=== PATIENT | male | born 1945 | race Caucasian/White ===

== ENCOUNTER → 2016-12-24 | Outpatient (CLI) | payer OTHER ==
[~2016-12-24] MED LIST: ASPIR 8181 MG PO; CENTRUM SILVER1 EAC1 PO; CLARITIN 10MG T10 MG PO; FISH OIL500 MG PO; FLOMAX 0.4 MG0.4 MG PO; FLONASE 0.05% N16 GM; GLUCOTROL 10 MG10 MG PO; HYDRALAZINE HCL10 MG PO; ISOSORBIDE MONO60 MG PO; LIORESAL TAB 1010 MG PO; LIPITOR TAB 2020 MG PO; METOPROLOL SUC100 MG PO; NEURONTIN 300300 MG PO; NITROSTAT0.4 MG SL; PRILOSEC OTC20 MG PO; PROVENTIL HFA 61 INH INH; RANEXA500 MG PO; TRADJENTA5 MG PO; TRESIBA SQ; ULTRAM50 MG PO; VITAMIN C 500500 MG PO; [UNRECOGNIZED DRUG - OTHER] OU
== END ==
LOC: RAD 16:18
DX: J06.9 Acute upper respiratory infection, unspecified (principal)
CPT/HCPCS: 71020

== ENCOUNTER → 2017-03-14 | Outpatient (CLI) | payer OTHER | LOC: HEART 5 11:41 | DX: J45.991 Cough variant asthma (principal) | CPT/HCPCS: 94060 ==

== ENCOUNTER 2020-09-23 20:04 | Emergency (ER) | payer OTHER ==
[~2020-09-23 20:04] MED LIST changes: +AMIODARONE HCL200 MG PO; +ASPIR-LOW81 MG PO; +CINNAMON PO; +CINNAMON500 MG PO; +CORDARONE 200M200 MG PO; +CREAM TOP; +ELIQUIS 5 MG TAB5 MG PO; +FISH OIL 1,0001 EAC4 PO; -GLUCOTROL 10 MG10 MG PO; +GLUCOTROL XL 5 M5 MG PO; +GLUCOTROL5 MG PO; +LATANOPROST 0.7.5 ML EYEBOTH; +LIPITOR40 MG PO; +LOPRESSOR 25 MG25 MG PO; +NEURONTIN600 MG PO; +OCCUVITE LUTEIN PO; +OCUVITE WITH L1 EACH PO; +OMEPRAZOLE40 MG PO; +ONCE DAILY1 EACH PO; +PLETAL 100 MG100 MG PO; +TOPROL XL100 MG PO; +TRESIBA FL100 UNIT/1 INJ; +VICTOZA 1818 MG/3 ML INJ; +VICTOZA 1818 MG/3 ML SQ; +VITAMIN C1000 MG PO; +VITAMIN D3400 UNIT PO; -[UNRECOGNIZED DRUG - OTHER] OU
[2020-09-23 21:29] LABS: HEMOGLOBIN 12.6 gm/dl (14.0-17.5); RED BLOOD COUNT 3.79 M/UL (4.20-5.50); WHITE BLOOD COUNT 7.8 K/UL (4.5-11.0)
[2020-09-23 21:35] LABS: BUN/CREATININE RATIO 16 (0-10)
== END 2020-09-23 23:57 | disposition home or self-care (01) ==
LOC: ER1 20:04
PROVIDERS: Family Medicine
DX: D64.9 Anemia, unspecified (principal); E11.22 Type 2 diabetes mellitus with diabetic chronic kidney disease; I12.9 Hypertensive chronic kidney disease with stage 1 through stage 4 chronic kidney disease, or unspecified chronic kidney disease; N18.9 Chronic kidney disease, unspecified; I48.91 Unspecified atrial fibrillation; Z20.822 Contact with and (suspected) exposure to COVID-19
CPT/HCPCS: 71045; 80053; 81001; 82550; 82553; 83615; 83874; 84484; 85025; 85610; 86140; 93005; 99285; U0002

== ENCOUNTER → 2020-11-15 | Outpatient (CLI) | payer OTHER ==
[2020-11-15 13:32] LABS: HEMOGLOBIN 12.9 gm/dl (14.0-17.5); RED BLOOD COUNT 3.84 M/UL (4.20-5.50); WHITE BLOOD COUNT 9.4 K/UL (4.5-11.0)
== END ==
LOC: LAB 12:47
PROVIDERS: Emergency Medicine
DX: I12.9 Hypertensive chronic kidney disease with stage 1 through stage 4 chronic kidney disease, or unspecified chronic kidney disease (principal); E11.22 Type 2 diabetes mellitus with diabetic chronic kidney disease; N18.30 Chronic kidney disease, stage 3 unspecified; I73.89 Other specified peripheral vascular diseases; I95.2 Hypotension due to drugs; R53.83 Other fatigue; R06.02 Shortness of breath; E11.65 Type 2 diabetes mellitus with hyperglycemia; E78.2 Mixed hyperlipidemia; D64.89 Other specified anemias
CPT/HCPCS: 36415; 71046; 80053; 83880; 84443; 84484; 85025; 85379

== ENCOUNTER 2020-11-23 15:06 | Emergency (ER) | payer OTHER ==
[2020-11-23 17:47] LABS: HEMOGLOBIN 12.2 gm/dl (14.0-17.5); RED BLOOD COUNT 3.65 M/UL (4.20-5.50); WHITE BLOOD COUNT 9.3 K/UL (4.5-11.0)
== END 2020-11-23 19:11 | disposition home or self-care (01) ==
LOC: ER1 15:06
PROVIDERS: Emergency Medicine
DX: R53.1 Weakness (principal); M54.5 Low back pain; R53.83 Other fatigue; I10 Essential (primary) hypertension; E11.9 Type 2 diabetes mellitus without complications
CPT/HCPCS: 71045; 80053; 81001; 82550; 82553; 83735; 83874; 83880; 84100; 84439; 84443; 84484; 85025; 85610; 85730; 93005; 99285

== ENCOUNTER → 2020-11-29 | Outpatient (CLI) | payer OTHER | LOC: US 10:25 | DX: R53.83 Other fatigue (principal); I73.89 Other specified peripheral vascular diseases; R06.02 Shortness of breath; I95.2 Hypotension due to drugs | CPT/HCPCS: 93005; 93925 ==

== ENCOUNTER → 2020-12-14 | Outpatient (CLI) | payer OTHER | LOC: US 10:06 | DX: I65.23 Occlusion and stenosis of bilateral carotid arteries (principal) | CPT/HCPCS: 93880 ==

== ENCOUNTER → 2020-12-15 | Outpatient (CLI) | payer OTHER | LOC: KOH-I 12:51 | DX: G44.89 Other headache syndrome (principal); M51.36 Other intervertebral disc degeneration, lumbar region; M51.26 Other intervertebral disc displacement, lumbar region; G31.9 Degenerative disease of nervous system, unspecified | CPT/HCPCS: 70450; 72148 ==

== ENCOUNTER → 2021-07-05 | Outpatient (CLI) | payer OTHER | LOC: KOH-I 10:20 | DX: Z01.818 Encounter for other preprocedural examination (principal); M43.16 Spondylolisthesis, lumbar region; M48.061 Spinal stenosis, lumbar region without neurogenic claudication; M51.36 Other intervertebral disc degeneration, lumbar region | CPT/HCPCS: 72131 ==

== ENCOUNTER → 2021-08-29 | Outpatient (CLI) | payer OTHER ==
[~2021-08-29] MED LIST changes: +ALBUTEROL INH; +CYMBALTA 30 MG30 MG PO; +ELIQUIS5 MG PO; +GABAPENTIN600 MG PO; +GLIPIZIDE ER5 MG PO; +LEVOTHYROXINE50 MCG PO; +OMEGA 3 1,0001 EACH PO; +RYTHMOL SR 325325 MG PO; +TOPROL XL25 MG PO; +TRESIBA FL100 UNIT/1 SQ; +VICTOZA 3-0.6 MG/0.1 SQ
[2021-08-29 10:48] LABS: HEMOGLOBIN 12.2 gm/dl (14.0-17.5); RED BLOOD COUNT 3.7 M/UL (4.20-5.50); WHITE BLOOD COUNT 11.2 K/UL (4.5-11.0)
== END ==
LOC: EDSTATUS 10:00 → OPSV2 10:00
PROVIDERS: Orthopaedic Surgery
DX: Z01.818 Encounter for other preprocedural examination (principal); M47.26 Other spondylosis with radiculopathy, lumbar region; M48.061 Spinal stenosis, lumbar region without neurogenic claudication
CPT/HCPCS: 71046; 80053; 81001; 83036; 85027; 87081; 93005

== ENCOUNTER → 2021-09-10 | Outpatient (CLI) | payer OTHER ==
[~2021-09-10] MED LIST changes: -ALBUTEROL INH; +AMMONIUM LACTA140 GM TOP; -CREAM TOP; +NOVOLOG 10100 UNITS1 INJ; +PROAIR DIGIHAL90 MCG INH; +ROXICODONE5 MG PO; +RYTHMOL SR 225225 MG PO; -RYTHMOL SR 325325 MG PO
== END ==
LOC: LAB 09:04
PROVIDERS: Orthopaedic Surgery
DX: Z01.812 Encounter for preprocedural laboratory examination (principal); I25.10 Atherosclerotic heart disease of native coronary artery without angina pectoris; I48.91 Unspecified atrial fibrillation; E11.9 Type 2 diabetes mellitus without complications
CPT/HCPCS: 36415; 80048; 85610; 85730; 86850; 86900; 86901

== ENCOUNTER 2021-09-11 05:42 | Inpatient (IN) | payer OTHER ==
[~2021-09-11] VITALS: Ht 167.6 cm; Wt 108.0 kg
[~2021-09-11 05:42] MED LIST changes: -AMMONIUM LACTA140 GM TOP; -LEVOTHYROXINE50 MCG PO; -NOVOLOG 10100 UNITS1 INJ; -OMEGA 3 1,0001 EACH PO; -PROAIR DIGIHAL90 MCG INH; -ROXICODONE5 MG PO; -RYTHMOL SR 225225 MG PO; -TRESIBA FL100 UNIT/1 INJ
[2021-09-11] MEDS ORDERED: ELIQUIS 5 MG TAB5 MG PO (09:13)
[2021-09-11] MEDS ORDERED: AMMONIUM LACTA140 GM TOP (09:19)
[2021-09-11] MEDS ORDERED: TRESIBA FL100 UNIT/1 INJ (09:23)
[2021-09-11] MEDS ORDERED: RYTHMOL SR 225225 MG PO (12:09)
[2021-09-11] MEDS ORDERED: LIPITOR40 MG PO (12:11)
[2021-09-11] MEDS ORDERED: OMEPRAZOLE40 MG PO (12:13)
[2021-09-11] MEDS ORDERED: LEVOTHYROXINE50 MCG PO (12:14)
[2021-09-11] MEDS ORDERED: OMEGA 3 1,0001 EACH PO (12:15)
[2021-09-11] MEDS ORDERED: PROAIR DIGIHAL90 MCG INH (12:16)
[2021-09-11 15:20] LABS: HEMOGLOBIN 9.6 gm/dl (14.0-17.5); RED BLOOD COUNT 2.95 M/UL (4.20-5.50)
[2021-09-11] MEDS ORDERED: ROXICODONE5 MG PO (18:50)
[2021-09-11] MEDS ORDERED: NOVOLOG 10100 UNITS1 INJ (18:51)
[2021-09-12 05:35] LABS: HEMOGLOBIN 9.6 gm/dl (14.0-17.5); RED BLOOD COUNT 2.98 M/UL (4.20-5.50); WHITE BLOOD COUNT 11.9 K/UL (4.5-11.0)
[2021-09-12 05:47] LABS: BUN/CREATININE RATIO 15 (0-10)
[2021-09-13 04:52] LABS: HEMOGLOBIN 8.4 gm/dl (14.0-17.5); WHITE BLOOD COUNT 11.4 K/UL (4.5-11.0)
[2021-09-13 05:12] LABS: RED BLOOD COUNT 2.58 M/UL (4.20-5.50)
[2021-09-13 13:51] LABS: HEMOGLOBIN 9.1 gm/dl (14.0-17.5)
[2021-09-14 05:41] LABS: HEMOGLOBIN 8.4 gm/dl (14.0-17.5); RED BLOOD COUNT 2.53 M/UL (4.20-5.50)
[2021-09-14 05:42] LABS: WHITE BLOOD COUNT 14.4 K/UL (4.5-11.0)
--- NOTE | 2021-09-14 23:09 | NUR ---
PT GOT UP TO USE RESTROOM AND STATED THAT HIS "BANDAGE IS PEELING OFF SOME." PRIMARY RN CLARIFIED THAT DRESSING WAS STILL INTACT. PT STATED THAT HE WANTED TO "SLEEP ON IT TO HOLD IT IN PLACE" AND THAT HE WOULD ALLOW PRIMARY RN TO CHANGE OR RE-INFORCE DRESSING NEEDED WHEN HE GOT UP TO USE BATHROOM AGAIN. [facility]
[2021-09-15 02:58] LABS: HEMOGLOBIN 8.8 gm/dl (14.0-17.5); RED BLOOD COUNT 2.68 M/UL (4.20-5.50)
[2021-09-15] MEDS ORDERED: CYCLOBENZAPRINE10 MG PO (09:59)
[2021-09-15] MEDS ORDERED: POLYETHYLENE GL17 GM PO (09:59)
[2021-09-15] MEDS ORDERED: FLU VACCINE IM (10:33)
[2021-09-16 06:11] LABS: HEMOGLOBIN 8.3 gm/dl (14.0-17.5); RED BLOOD COUNT 2.5 M/UL (4.20-5.50); WHITE BLOOD COUNT 9.3 K/UL (4.5-11.0)
== END 2021-09-16 18:30 | disposition home or self-care (01) | DRG 460 ==
LOC: OR 05:42 → CCU 15:40 → M/S 09-14 10:27
PROVIDERS: Internal Medicine Infectious Disease; Internal Medicine Nephrology; ADMIT Orthopaedic Surgery
PROC: 0SB20ZZ Excision of Lumbar Vertebral Disc, Open Approach (ICD-10-PCS; 2021-09-11)
PROC: 01NB0ZZ Release Lumbar Nerve, Open Approach (ICD-10-PCS; 2021-09-11)
PROC: 4A11X4G Monitoring of Peripheral Nervous Electrical Activity, Intraoperative, External Approach (ICD-10-PCS; 2021-09-11)
PROC: 0SG1071 Fusion of 2 or more Lumbar Vertebral Joints with Autologous Tissue Substitute, Posterior Approach, Posterior Column, Open Approach (ICD-10-PCS; 2021-09-11 07:30)
PROC: 30233N1 Transfusion of Nonautologous Red Blood Cells into Peripheral Vein, Percutaneous Approach (ICD-10-PCS; principal; 2021-09-14)
DX: M48.061 Spinal stenosis, lumbar region without neurogenic claudication (principal); D62 Acute posthemorrhagic anemia; N17.9 Acute kidney failure, unspecified; M47.26 Other spondylosis with radiculopathy, lumbar region; I25.10 Atherosclerotic heart disease of native coronary artery without angina pectoris; Z20.822 Contact with and (suspected) exposure to COVID-19; I12.9 Hypertensive chronic kidney disease with stage 1 through stage 4 chronic kidney disease, or unspecified chronic kidney disease; N18.30 Chronic kidney disease, stage 3 unspecified; I48.0 Paroxysmal atrial fibrillation; H40.9 Unspecified glaucoma; E03.9 Hypothyroidism, unspecified; Z96.652 Presence of left artificial knee joint; E11.22 Type 2 diabetes mellitus with diabetic chronic kidney disease; K21.9 Gastro-esophageal reflux disease without esophagitis; G47.33 Obstructive sleep apnea (adult) (pediatric); E78.5 Hyperlipidemia, unspecified; N13.9 Obstructive and reflux uropathy, unspecified; R33.8 Other retention of urine; M51.36 Other intervertebral disc degeneration, lumbar region; Z79.01 Long term (current) use of anticoagulants; Z85.46 Personal history of malignant neoplasm of prostate; Z98.890 Other specified postprocedural states; Z90.89 Acquired absence of other organs; Z98.42 Cataract extraction status, left eye; Z98.41 Cataract extraction status, right eye; Z79.899 Other long term (current) drug therapy; Z79.52 Long term (current) use of systemic steroids; Z92.3 Personal history of irradiation; Z82.49 Family history of ischemic heart disease and other diseases of the circulatory system
CPT/HCPCS: 36415; 36430; 72100; 72110; 76000; 80048; 80053; 81001; 82962; 84133; 84300; 85014; 85018; 85025; 85027; 86850; 86900; 86901; 86920; 89050; 90686; 94760; 97116-GP-CQ; 97161; 97166; 97530; 97530-GP-CQ; 97535; C1713; C1762; G0008; J0690; J1100; J1200; J1940; J2370; J2704; J2710; J3010; J3370; J3475; J7030; J7040; J7120; P9016; P9047

== ENCOUNTER → 2021-09-20 | Outpatient (CLI) | payer OTHER ==
[~2021-09-20] MED LIST changes: +AMMONIUM LACTA140 GM TOP; +CYCLOBENZAPRINE10 MG PO; +FLU VACCINE IM; +LEVOTHYROXINE50 MCG PO; +NOVOLOG 10100 UNITS1 INJ; +OMEGA 3 1,0001 EACH PO; +POLYETHYLENE GL17 GM PO; +PROAIR DIGIHAL90 MCG INH; +ROXICODONE5 MG PO; +RYTHMOL SR 225225 MG PO; +TRESIBA FL100 UNIT/1 INJ
[2021-09-20 13:42] LABS: HEMOGLOBIN 9.9 gm/dl (14.0-17.5); RED BLOOD COUNT 3.03 M/UL (4.20-5.50); WHITE BLOOD COUNT 11.6 K/UL (4.5-11.0)
[2021-09-21 06:10] LABS: CREATININE, SERUM 1.15 mg/dL (0.76-1.27); POTASSIUM, SERUM 4.2 mmol/L (3.5-5.2)
== END ==
LOC: LAB 12:43
PROVIDERS: Emergency Medicine
DX: N18.30 Chronic kidney disease, stage 3 unspecified (principal); D62 Acute posthemorrhagic anemia
CPT/HCPCS: 36415; 80048; 85027

== ENCOUNTER 2022-01-25 12:49 | Emergency (ER) | payer OTHER ==
[2022-01-25] MEDS ORDERED: HYDROCODON-ACE1 EAC4 PO (17:02)
== END 2022-01-25 17:12 | disposition home or self-care (01) ==
LOC: ER1 12:49
DX: S20.212A Contusion of left front wall of thorax, initial encounter (principal); I51.9 Heart disease, unspecified; E11.9 Type 2 diabetes mellitus without complications; I48.91 Unspecified atrial fibrillation; W01.0XXA Fall on same level from slipping, tripping and stumbling without subsequent striking against object, initial encounter
CPT/HCPCS: 71101; 99283

== ENCOUNTER → 2022-02-12 | Outpatient (CLI) | payer OTHER ==
[~2022-02-12] MED LIST changes: +HYDROCODON-ACE1 EAC4 PO
== END ==
LOC: LAB 10:05
PROVIDERS: Emergency Medicine
DX: G56.03 Carpal tunnel syndrome, bilateral upper limbs (principal); M54.2 Cervicalgia; E11.42 Type 2 diabetes mellitus with diabetic polyneuropathy; I25.10 Atherosclerotic heart disease of native coronary artery without angina pectoris; I10 Essential (primary) hypertension; E11.69 Type 2 diabetes mellitus with other specified complication
CPT/HCPCS: 36415; 80053; 83036; 84550

== ENCOUNTER → 2022-03-29 | Outpatient (CLI) | payer OTHER | LOC: EXRD 10:36 | DX: I10 Essential (primary) hypertension (principal); K21.9 Gastro-esophageal reflux disease without esophagitis; E78.2 Mixed hyperlipidemia; I48.19 Other persistent atrial fibrillation; E11.65 Type 2 diabetes mellitus with hyperglycemia; E11.42 Type 2 diabetes mellitus with diabetic polyneuropathy; I65.29 Occlusion and stenosis of unspecified carotid artery | CPT/HCPCS: 93880 ==

== ENCOUNTER → 2022-06-06 | Outpatient (CLI) | payer OTHER | LOC: CATH 09:37 → EDSTATUS 10:00 | DX: R42 Dizziness and giddiness (principal); R55 Syncope and collapse ==